=== PATIENT | female | born 1955 | race Caucasian/White ===

== ENCOUNTER 2017-03-05 12:58 | Day surgery (SDC) | payer BC ==
[~2017-03-05] VITALS: Ht 162.6 cm; Wt 81.0 kg
[~2017-03-05 12:58] MED LIST: DEXAMETHASONE 4 MG/ML, 1ML ONE; KETOROLAC 30 MG/1 ML ONE; None at this Time; ONDANSETRON 2MG/ML, 2ML ONE; PROPOFOL 10 MG/ML, 20ML ONE
[2017-03-05] MEDS ORDERED: LACTATED RINGERS 1,000 ML IV SCH (13:24)
[2017-03-05 13:25] VITALS: BP 143/79
[2017-03-05] MEDS ORDERED: MIDAZOLAM 1 MG/ML, 2ML ONE (15:12)
[2017-03-05] MEDS ORDERED: FENTANYL PF 250 MCG/5ML ONE (15:12)
[2017-03-05] MEDS ORDERED: BUPIVACAINE/PF 0.25% ONE (15:28)
[2017-03-05] MEDS ORDERED: OXYTOCIN 10 UNITS/ML, 1ML ONE (15:28)
[2017-03-05] MEDS ORDERED: MISOPROSTOL 200 MCG TABLET ONE (15:28)
[2017-03-05] MEDS ORDERED: EPINEPHRINE 1 MG/ML, 1ML ONE (15:28)
[2017-03-05] MEDS ORDERED: SILVER NITRATE STICK TP ONE (15:28)
== END 2017-03-05 17:45 | disposition home or self-care (01) ==
LOC: EDBD → OUT 12:58
PROVIDERS: ATTEND Obstetrics & Gynecology
DX: N88.8 Other specified noninflammatory disorders of cervix uteri (principal); G47.33 Obstructive sleep apnea (adult) (pediatric); E66.9 Obesity, unspecified; Z85.3 Personal history of malignant neoplasm of breast; Z80.3 Family history of malignant neoplasm of breast; Z68.30 Body mass index [BMI] 30.0-30.9, adult
CPT/HCPCS: 58120; 88305; J1100; J1885; J2250; J2405; J2704; J3010; J7120; J0171; J3490; J2590